=== PATIENT | male | born 1970 | race Caucasian/White ===

== ENCOUNTER → 2018-02-10 13:41 | Outpatient (CLI) | payer OTHER, SELFPAY ==
[2018-02-10 14:17] LABS: Add Manual Diff / Slide Review NO; Basophils Percent Auto 0.5 % (0-2); Hematocrit 48.3 % (41-53); Lymphocytes Percent Auto 20.8 % (25-40); Mean Corpuscular HGB Conc 35.2 % (30-36); Mean Corpuscular Hemoglobin 31.7 PG (26-34); Mean Corpuscular Volume 90.2 fL (80-100); Monocytes Percent Auto 7.9 % (3-14); Neutrophils Absolute Auto 7000 /uL (3000-5900); Neutrophils Percent Auto 69.8 % (50-75); Platelet Count 198 X10^3/uL (150-400); Red Blood Cell Count 5.36 X10^6/uL (4.5-5.9); Red Cell Distribution Width 12.9 % (11.6-14.8)
[2018-02-10 14:41] LABS: Alanine Aminotransferase 79 IU/L (21-72); Albumin 4.7 g/dL (3.5-5.0); Albumin Globulin Ratio 1.9 (1.0-2.8); Alkaline Phosphatase 60 U/L (38-126); Aspartate Aminotransferase 108 IU/L (17-59); Bilirubin Total 2.1 mg/dL (0.2-1.3); Calcium 9.6 mg/dL (8.4-10.2); Estimated Glomerular Filt Rate > 60.0 mL/min (>60); Globulin 2.5 g/dL (1.7-4.1); Glucose 80 mg/dL (70-100); HEMOLYSIS < 15 (0-50); Potassium 4.1 mmol/L (3.4-5.1); Sodium 140 mmol/L (137-145); Total Protein 7.2 g/dL (6.3-8.2)
== END ==
PROVIDERS: PCP Family Medicine; Visit Provider Family Medicine
DX: E34.9 Endocrine disorder, unspecified (principal); I10 Essential (primary) hypertension; Z79.899 Other long term (current) drug therapy
CPT/HCPCS: 36415; 80053; 84403; 85025

== ENCOUNTER → 2018-05-07 12:11 | Outpatient (CLI) | payer OTHER, SELFPAY ==
[2018-05-07 12:56] LABS: Add Manual Diff / Slide Review NO; Basophils Percent Auto 0.7 % (0-2); Hematocrit 44.5 % (41-53); Hemoglobin 15.4 g/dL (13.5-17.5); Mean Corpuscular HGB Conc 34.7 % (30-36); Mean Corpuscular Hemoglobin 31.8 PG (26-34); Mean Corpuscular Volume 91.6 fL (80-100); Monocytes Percent Auto 7.8 % (3-14); Neutrophils Absolute Auto 4300 /uL (3000-5900); Neutrophils Percent Auto 63.5 % (50-75); Platelet Count 176 X10^3/uL (150-400); Red Blood Cell Count 4.86 X10^6/uL (4.5-5.9); White Blood Cell Count 6.7 X10^3/uL (4.5-11.0)
[2018-05-07 13:13] LABS: Alanine Aminotransferase 30 IU/L (21-72); Albumin 4.4 g/dL (3.5-5.0); Albumin Globulin Ratio 1.8 (1.0-2.8); Alkaline Phosphatase 48 U/L (38-126); Aspartate Aminotransferase 29 IU/L (17-59); BUN Creatinine Ratio 22.5 (6-22); Bilirubin Total 1.4 mg/dL (0.2-1.3); Blood Urea Nitrogen 18 mg/dL (9-20); Calcium 9.3 mg/dL (8.4-10.2); Carbon Dioxide 28 mmol/L (22-32); Chloride 100 mmol/L (98-107); Cholesterol 129 mg/dL (140-199); Estimated Glomerular Filt Rate > 60.0 mL/min (>60); Globulin 2.4 g/dL (1.7-4.1); Glucose 83 mg/dL (70-100); HDL Cholesterol 64 mg/dL (40-60); HEMOLYSIS < 15 (0-50); Hemoglobin A1C% w Est Avg Glu 4.9 % (4.0-6.0); LDL Cholesterol Calculated 53 mg/dL (<100); Potassium 3.8 mmol/L (3.4-5.1); Sodium 139 mmol/L (137-145); Total Protein 6.8 g/dL (6.3-8.2); Triglycerides 59 mg/dL (35-150)
[2018-05-07 14:17] LABS: Folate > 20.0 ng/mL (2.76-20.0); Vitamin B12 842 pg/mL (239-931)
[2018-05-07 15:07] LABS: HEMOLYSIS < 15 (0-50); Iron 103 ug/dL (49-181)
[2018-05-07 15:17] LABS: Percent Iron Saturation 36 % (20-50); Total Iron Binding Capacity 283 ug/dL (261-462); Transferrin 228 mg/dL (206-381)
[2018-05-07 15:39] LABS: Thyroid Stimulating Hormone 1.24 uIU/mL (0.47-4.68)
[2018-05-07 16:31] LABS: Vitamin D 25 Hydroxy (D3) 78.6 ng/mL (30.0-100.0)
[2018-05-11 06:26] LABS: Vitamin B1 200 nmol/L (78-185)
== END ==
PROVIDERS: PCP Family Medicine; Visit Provider Registered Nurse Community Health
DX: E46 Unspecified protein-calorie malnutrition (principal); E63.9 Nutritional deficiency, unspecified
CPT/HCPCS: 36415; 80053; 80061; 82306; 82607; 82728; 82746; 83036; 83540; 83550; 84425; 84443; 85025

== ENCOUNTER → 2019-03-11 10:28 | Outpatient (CLI) | payer OTHER, SELFPAY ==
[2019-03-11 11:00] LABS: Hematocrit 42.9 % (41-53); Hemoglobin 14.9 g/dL (13.5-17.5); Mean Corpuscular HGB Conc 34.8 % (30-36); Mean Corpuscular Hemoglobin 31.4 PG (26-34); Mean Corpuscular Volume 90.2 fL (80-100); Platelet Count 185 X10^3/uL (150-400); Red Blood Cell Count 4.75 X10^6/uL (4.5-5.9); Red Cell Distribution Width 13.2 % (11.6-14.8); White Blood Cell Count 6.4 X10^3/uL (4.5-11.0)
[2019-03-14 21:10] LABS: Testosterone Total 467 ng/dL (250-1100)
== END ==
PROVIDERS: PCP Student in an Organized Health Care Education/Training Program; Visit Provider Student in an Organized Health Care Education/Training Program
DX: R79.89 Other specified abnormal findings of blood chemistry (principal); E34.9 Endocrine disorder, unspecified
CPT/HCPCS: 36415; 84402; 84403; 85027

== ENCOUNTER 2019-05-29 20:43 | Emergency (ER) | payer OTHER, SELFPAY ==
[2019-05-29 21:12] VITALS: BP 152/104; PULSE 87; RESP 16; TEMP 36.5; O2SAT 98; BMI 35.2
--- NOTE | 2019-05-29 21:18 | PC.NURSE ---
pt states [place] and had a blister develop on his left big toe. He states this in a normal spot to develop a blister after this type of workout however he states his pain is not proportional to a blister. His left ankle is swollen and it is painful to touch the area. States he karli needs a tetanus and is concerned for infection due to exposure to horse poop in the ponds and puddles of the obsticle course.
[2019-05-29 21:24] VITALS: BP 136/82
--- NOTE | 2019-05-29 23:08 | ED_ITS ---
HPI - Extremity Injury (Lower) General Chief Complaint: Extremity Injury, Lower Stated Complaint: left big toe, thinks infected Time Seen by Provider: 05/29/19 21:47 Source: patient Mode of arrival: ambulatory Limitations: no limitations History of Present Illness HPI Narrative: Patient comes emergency department complaining of left great toe pain after running a [employer] race yesterday. Patient states he developed a blister, and thought he had some pus coming out of it today. He is concerned that he may have developed an infection. He has noticed some mild swelling of his left great toe, as well as some erythema on the medial aspect of the toe, adjacent to the nail. Patient denies any direct injury to the area otherwise. He denies any fevers or chills. He states his whole body aches after doing the raise. No other complaints at this time. Related Data Home Medications Medication Instructions Recorded Confirmed lamotrigine 250 mg tablet,extended 300 mg PO BID #0 tab 02/04/19 03/11/19 release 24 hr lorazepam 2 mg/mL oral concentrate 2 mg PO BEDTIME PRN 02/04/19 03/11/19 quetiapine 25 mg tablet 25 mg PO .prn #0 tab 02/04/19 03/11/19 Previous Rx's Medication Instructions Recorded testosterone cypionate 200 mg IM .see instructions #1 ml 02/16/18 testosterone cypionate 200 mg/mL 200 mg IM Q3W #5 ml 11/04/18 intramuscular oil sulfamethoxazole-trimethoprim 1 tab PO Q12H #14 tab 05/29/19 [Bactrim DS] Allergies Allergy/AdvReac Type Severity Reaction Status Date / Time amoxicillin [AMOXICILLIN] Allergy Mild STOMACH Verified 03/11/19 09:56 PAIN, DIARRHEA Review of Systems Constitutional Constitutional: Denies chills, Denies fatigue, Denies fever(s), Denies frequent falls, Denies lethargy and Denies weakness Eyes Eyes: Denies change in vision, Denies eye discharge, Denies irritation and Denies loss of vision ENT Ears, Nose, Mouth, and Throat: Denies change in voice, Denies dizziness, Denies neck pain, Denies sore throat and Denies throat swelling Cardiovascular Cardiovascular: Denies chest pain, Denies irregular heart rhythm, Denies lightheadedness, Denies palpitations, Denies dyspnea, Denies dyspnea on exertion and Denies orthopnea Respiratory Respiratory: Denies cough, Denies dyspnea, Denies dyspnea on exertion and Denies wheezing Gastrointestinal Gastrointestinal: Denies abdominal pain, Denies change in bowel habits, Denies diarrhea, Denies nausea and Denies vomiting Genitourinary Genitourinary: Denies hematuria, Denies flank pain, Denies urinary incontinence and Denies urinary urgency Musculoskeletal Musculoskeletal: Denies back pain, Denies muscle weakness, Denies neck pain, Denies numbness and Denies tingling Integumentary/Breasts Skin/Breast: Denies pruritus, Denies erythema, Denies rash and Denies wounds Comments: Erythema and pain left great toe Neurologic Neurologic: Denies behavioral changes, Denies confusion, Denies dizziness, Denies frequent falls, Denies loss of vision, Denies numbness, Denies tingling and Denies weakness Psychiatric Psychiatric: Denies anxiety, Denies behavioral changes, Denies confusion, Denies depression, Denies homicidal ideation and Denies suicidal ideation Endocrine Endocrine: Denies fatigue, Denies flushing and Denies palpitations Hematologic/Lymphatic Hematologic/Lymphatic: Denies easy bruising Allergic/Immunologic Allergic/Immunologic: Denies urticaria, Denies throat swelling and Denies wheezing PFSH Medical History Bipolar affective disorder (Chronic 10/16/15) Bipolar disorder (Chronic Unknown) Chronic pain syndrome (Chronic Unknown) Depression (Chronic Unknown) Essential hypertension (Chronic 10/16/15) Hypertension (Chronic Unknown) Kidney stones (Resolved Unknown) Low testosterone (Chronic Unknown) Morbid obesity (Resolved 10/16/15) Pain of right heel (Chronic) Sleep apnea (Chronic Unknown) Testosterone deficiency (Chronic 05/04/15) Surgical History History of lithotripsy S/P bariatric surgery (Chronic) Family History Father Age: 59 Cancer Mother Age: 54 Mental health disorder Social History Smoking Status: Never smoker Family History Father Age: 59 Cancer Mother Age: 54 Mental health disorder Social History Smoking Status: Never smoker Exam Initial Vital Signs Initial Vital Signs: Vital Signs Temperature 97.7 F 05/29/19 21:12 Pulse Rate 87 05/29/19 21:12 Respiratory Rate 16 05/29/19 21:12 Blood Pressure 152/104 H 05/29/19 21:12 Pulse Oximetry 98 05/29/19 21:12 Const General: cooperative and well developed Nutritional Appearance: well nourished Orientation: alert, awake, oriented x3 and not confused [facility] Head: normocephalic and atraumatic Ears: external ears normal Nose: external nose normal and No nasal discharge Face and sinus: face symmetric and No dry mucous membranes Mouth: oral mucosae normal and moist mucous membranes Teeth and gingiva: dentition normal Eyes General: appearance normal, both eyes and all related structures Eyelids: eyelids normal Conjunctivae: conjunctivae normal Sclera: sclerae normal Pupils: PERRL EOM: EOM intact bilaterally Neck Neck: normal visual inspection, trachea midline, No lymphadenopathy, No midline deformity and No JVD Lymphatic: No lymphedema Chest Chest: normal inspection of the chest Resp Effort & Inspection: normal respiratory effort, able to speak in complete sentences, no respiratory distress and no use of accessory muscles Cardio Rate: regular rate Rhythm: regular rhythm Pulses: normal peripheral pulses Back/Spine/Pelvis Back: No CVA tenderness Cervical Spine: cervical ROM normal and No pain with cervical ROM Thoracic/Lumbar Spine: thoracic and lumbar spine normal to inspection Skin Other: Patient has a 1 cm by 1.5 cm bulla on the medial aspect of his left great toe. Mild erythema is noted in a localized fashion surrounding the bowlegged, extending to the edge of the nail and over the tip of the toe. No extension to the base or streaking noted. Minimal edema noted. No purulent exudate expressible. Neuro General: alert, oriented x3, gait normal and no focal motor deficits Speech: speech normal Extrem General: full ROM, no clubbing, cyanosis or edema, no pedal edema and no calf tenderness Psych Appearance: well kempt Mental Status: mental status grossly normal Attitude: cooperative Thought Content: normal and suicidality Judgment: judgment good Course Course Course Narrative: Patient was given a tetanus shot in the emergency department. I discussed with the patient that I do not see clear-cut signs of infection. Patient has a mild increase in erythema on the left great toe compared to the right, but does not appear distinctly cellulitic. I will give him a prescription for antibiotics that he should fill only if the redness and swelling spread down to the base of his toe. Otherwise, he should continue soaks and wear open-toed shoes that do not put pressure on the blistered area. Orders Ordered: Discontinued Medications Tetanus/Diphtheria Toxoids (Td) 0.5 ml IM .ONCE ONE Stop: 05/29/19 23:46 Last Admin: 05/29/19 23:36 Dose: 0.5 ml Documented by: LE Vital Signs Vital signs: Vital Signs - 8 hr 05/29/19 21:12 05/29/19 21:24 Temperature 97.7 F Pulse Rate 87 Respiratory Rate 16 Blood Pressure 152/104 H Blood Pressure [Right Arm] 136/82 Pulse Oximetry 98 MDM - Extremity Injury (Lower) Medical Records Attestation: I reviewed the patient's medical records. Discharge Plan Departure Patient Disposition: Home Clinical Impression: Blister Discharge Date/Time: 05/29/19 23:44 Instructions: DI for Blisters Activity Restrictions/Additional Instructions: Your toe does not appear distinctly infected at this time. Most likely, the mild redness is due to inflammation and will go away on its own. However, if you notice that the redness is spreading down to the base of your toe, you should start the antibiotics. Your prescription has been electronically transmitted to [facility] in [place]. Prescriptions: New sulfamethoxazole-trimethoprim [Bactrim DS] 800-160 mg tablet 1 tab PO Q12H Qty: 14 RF: 0 No Action lorazepam 2 mg/mL concentrate 2 mg PO BEDTIME PRNRF: 0 testosterone cypionate liquid 200 mg IM .see instructions Qty: 1 RF: 5 testosterone cypionate [Depo-Testosterone] 200 mg/mL oil 200 mg IM Q3W Qty: 5 RF: 0 lamotrigine 250 mg tablet extended release 24 hr 300 mg PO BID Qty: 0 RF: 0 quetiapine 25 mg tablet 25 mg PO .prn Qty: 0 RF: 0 Referrals: Jean Santiago MD [Primary Care Provider] -
[2019-05-29] MEDS: TETANUS DIPHTHERIA TOXOIDS 0.5 ML VIAL IM (23:36)
[2019-05-29 23:43] VITALS: BP 135/97; PULSE 64; RESP 14; O2SAT 96
== END 2019-05-29 23:44 | disposition home or self-care (01) ==
PROVIDERS: Emergency Provider Emergency Medicine; PCP Student in an Organized Health Care Education/Training Program
DX: S90.422A Blister (nonthermal), left great toe, initial encounter (principal); Z23 Encounter for immunization
CPT/HCPCS: 90471; 90714; 99282; 99283

== ENCOUNTER → 2019-08-11 10:31 | Outpatient (CLI) | payer OTHER, SELFPAY | PROVIDERS: Family Provider Student in an Organized Health Care Education/Training Program; PCP Student in an Organized Health Care Education/Training Program; Visit Provider Family Medicine | DX: F31.70 Bipolar disorder, currently in remission, most recent episode unspecified (principal); E78.00 Pure hypercholesterolemia, unspecified ==

== ENCOUNTER → 2020-01-18 12:18 | Outpatient (CLI) | payer OTHER, SELFPAY ==
[2020-01-18 12:49] LABS: Add Manual Diff / Slide Review NO; Basophils Absolute Auto 0 /uL (0-100); Basophils Percent Auto 0.4 % (0-2); Eosinophils Absolute Auto 100 /uL (0-450); Eosinophils Percent Auto 1.7 % (2-4); Hematocrit 40.9 % (41-53); Hemoglobin 14.8 g/dL (13.5-17.5); Lymphocytes Absolute Auto 1300 /uL (1100-4500); Lymphocytes Percent Auto 22.2 % (25-40); Mean Corpuscular Hemoglobin 32.6 PG (26-34); Mean Corpuscular Volume 89.8 fL (80-100); Monocytes Absolute Auto 400 /uL (0-900); Monocytes Percent Auto 7.6 % (3-14); Neutrophils Absolute Auto 4000 /uL (1500-7000); Neutrophils Percent Auto 68.1 % (50-75); Platelet Count 196 X10^3/uL (150-400); Red Blood Cell Count 4.56 X10^6/uL (4.5-5.9); Red Cell Distribution Width 12.9 % (11.6-14.8); White Blood Cell Count 5.8 X10^3/uL (4.5-11.0)
[2020-01-18 12:58] LABS: Alanine Aminotransferase 29 IU/L (<50); Albumin 4.7 g/dL (3.5-5.0); Albumin Globulin Ratio 1.6 (1.0-2.8); Alkaline Phosphatase 61 U/L (38-126); Aspartate Aminotransferase 42 IU/L (17-59); BUN Creatinine Ratio 19.1 (6-22); Bilirubin Total 1.4 mg/dL (0.2-1.3); Blood Urea Nitrogen 13 mg/dL (9-20); Calcium 9.6 mg/dL (8.4-10.2); Carbon Dioxide 27 mmol/L (22-32); Chloride 103 mmol/L (98-107); Cholesterol 136 mg/dL (140-199); Estimated Glomerular Filt Rate > 60.0 mL/min (>60); Globulin 2.9 g/dL (1.7-4.1); Glucose 99 mg/dL (70-100); HDL Cholesterol 60 mg/dL (40-60); HEMOLYSIS < 15 (0-50); LDL Cholesterol Calculated 64 mg/dL (<100); Potassium 4.2 mmol/L (3.4-5.1); Sodium 139 mmol/L (137-145); Total Protein 7.6 g/dL (6.3-8.2); Triglycerides 62 mg/dL (35-150)
[2020-01-18 13:18] LABS: Mean Corpuscular HGB Conc 36.2 % (30-36)
[2020-01-18 13:29] LABS: Testosterone 453 ng/dL (132-813)
== END ==
PROVIDERS: Family Provider Student in an Organized Health Care Education/Training Program; PCP Family Medicine; Referring Provider Family Medicine; Visit Provider Family Medicine
DX: E78.00 Pure hypercholesterolemia, unspecified (principal); F31.70 Bipolar disorder, currently in remission, most recent episode unspecified
CPT/HCPCS: 36415; 80053; 80061; 84403; 85025

== ENCOUNTER → 2020-01-31 10:02 | Outpatient (CLI) | payer OTHER, SELFPAY ==
[2020-01-31 13:23] LABS: Lithium 0.6 mmol/L (0.6-1.2)
[2020-01-31 13:56] LABS: Thyroid Stimulating Hormone 0.74 uIU/mL (0.47-4.68)
== END ==
PROVIDERS: Family Provider Student in an Organized Health Care Education/Training Program; PCP Family Medicine; Referring Provider Psychiatry & Neurology Psychiatry; Visit Provider Psychiatry & Neurology Psychiatry
DX: F31.81 Bipolar II disorder (principal)
CPT/HCPCS: 36415; 80178; 84443

== ENCOUNTER → 2020-07-03 12:51 | Outpatient (CLI) | payer OTHER, SELFPAY ==
[2020-07-03 14:59] LABS: BUN Creatinine Ratio 32.8 (6-22); Blood Urea Nitrogen 22 mg/dL (9-20); Calcium 9.3 mg/dL (8.4-10.2); Carbon Dioxide 29 mmol/L (22-32); Chloride 103 mmol/L (98-107); Estimated Glomerular Filt Rate > 60.0 mL/min (>60); Glucose 109 mg/dL (70-100); HEMOLYSIS < 15 (0-50); Potassium 4.1 mmol/L (3.4-5.1); Sodium 139 mmol/L (137-145)
[2020-07-03 15:22] LABS: Lithium 0.6 mmol/L (0.6-1.2)
== END ==
PROVIDERS: Family Provider Student in an Organized Health Care Education/Training Program; PCP Family Medicine; Referring Provider Psychiatry & Neurology Psychiatry; Visit Provider Psychiatry & Neurology Psychiatry
DX: F31.81 Bipolar II disorder (principal)
CPT/HCPCS: 36415; 80048; 80178

== ENCOUNTER → 2020-07-28 15:12 | Outpatient (CLI) | payer OTHER, SELFPAY ==
[2020-07-30 07:56] LABS: COVID19 Sendout Not Detected (Not Detect)
== END ==
PROVIDERS: Family Provider Student in an Organized Health Care Education/Training Program; PCP Family Medicine; Visit Provider Physician Assistant
DX: Z11.59 Encounter for screening for other viral diseases (principal)
CPT/HCPCS: 87635

== ENCOUNTER → 2020-08-31 07:23 | Outpatient (CLI) | payer OTHER, SELFPAY ==
[2020-08-31 08:16] LABS: Add Manual Diff / Slide Review NO; Basophils Absolute Auto 0 /uL (0-100); Basophils Percent Auto 0.2 % (0-2); Eosinophils Absolute Auto 200 /uL (0-450); Eosinophils Percent Auto 1.3 % (2-4); Hematocrit 42.8 % (41-53); Hemoglobin 15.4 g/dL (13.5-17.5); Lymphocytes Absolute Auto 1500 /uL (1100-4500); Lymphocytes Percent Auto 9.3 % (25-40); Mean Corpuscular HGB Conc 36.1 % (30-36); Mean Corpuscular Hemoglobin 31.8 PG (26-34); Mean Corpuscular Volume 88.2 fL (80-100); Monocytes Absolute Auto 900 /uL (0-900); Monocytes Percent Auto 5.3 % (3-14); Neutrophils Absolute Auto 13700 /uL (1500-7000); Neutrophils Percent Auto 83.9 % (50-75); Platelet Count 204 X10^3/uL (150-400); Red Blood Cell Count 4.85 X10^6/uL (4.5-5.9); Red Cell Distribution Width 12.3 % (11.6-14.8); White Blood Cell Count 16.4 X10^3/uL (4.5-11.0)
[2020-08-31 08:19] LABS: Hemoglobin A1C% w Est Avg Glu 4.8 % (4.0-6.0)
[2020-08-31 08:26] LABS: Iron 69 ug/dL (49-181); Lithium 0.6 mmol/L (0.6-1.2)
[2020-08-31 08:28] LABS: Alanine Aminotransferase 24 IU/L (<50); Albumin 4.3 g/dL (3.5-5.0); Albumin Globulin Ratio 1.7 (1.0-2.8); Alkaline Phosphatase 60 U/L (38-126); Aspartate Aminotransferase 33 IU/L (17-59); BUN Creatinine Ratio 25.9 (6-22); Bilirubin Total 1.8 mg/dL (0.2-1.3); Blood Urea Nitrogen 15 mg/dL (9-20); Calcium 9.3 mg/dL (8.4-10.2); Carbon Dioxide 26 mmol/L (22-32); Chloride 104 mmol/L (98-107); Cholesterol 127 mg/dL (140-199); Estimated Glomerular Filt Rate > 60.0 mL/min (>60); Globulin 2.5 g/dL (1.7-4.1); Glucose 102 mg/dL (70-100); HDL Cholesterol 59 mg/dL (40-60); HEMOLYSIS < 15 (0-50); LDL Cholesterol Calculated 58 mg/dL (<100); Potassium 4.1 mmol/L (3.4-5.1); Sodium 137 mmol/L (137-145); Total Protein 6.8 g/dL (6.3-8.2); Triglycerides 51 mg/dL (35-150)
[2020-08-31 08:36] LABS: Total Iron Binding Capacity 317 ug/dL (261-462)
[2020-08-31 08:45] LABS: Vitamin D 25 Hydroxy (D3) 38.9 ng/mL (30.0-100.0)
[2020-08-31 09:02] LABS: Thyroid Stimulating Hormone 1.11 uIU/mL (0.47-4.68)
[2020-08-31 09:04] LABS: Ferritin 231 ng/mL (18-464)
[2020-08-31 09:34] LABS: Folate > 20.0 ng/mL (2.76-20.0); Vitamin B12 543 pg/mL (239-931)
== END ==
PROVIDERS: Family Provider Student in an Organized Health Care Education/Training Program; PCP Family Medicine; Referring Provider Surgery; Visit Provider Surgery
DX: Z51.81 Encounter for therapeutic drug level monitoring (principal); E46 Unspecified protein-calorie malnutrition; K90.9 Intestinal malabsorption, unspecified; Z98.84 Bariatric surgery status
CPT/HCPCS: 36415; 80053; 80061; 80178; 82306; 82607; 82728; 82746; 83036; 83540; 83550; 84425; 84443; 85025

== ENCOUNTER → 2020-09-10 16:13 | Outpatient (CLI) | payer OTHER, SELFPAY ==
[2020-09-10 16:54] LABS: Lithium 0.9 mmol/L (0.6-1.2)
== END ==
PROVIDERS: Family Provider Student in an Organized Health Care Education/Training Program; PCP Family Medicine; Referring Provider Psychiatry & Neurology Psychiatry; Visit Provider Psychiatry & Neurology Psychiatry
DX: F31.81 Bipolar II disorder (principal); Z51.81 Encounter for therapeutic drug level monitoring
CPT/HCPCS: 36415; 80178

== ENCOUNTER → 2021-02-05 12:40 | Outpatient (CLI) | payer OTHER, SELFPAY ==
[2021-02-05 14:51] LABS: Lithium 0.8 mmol/L (0.6-1.2)
[2021-02-05 15:35] LABS: BUN Creatinine Ratio 24.3 (6-22); Blood Urea Nitrogen 17 mg/dL (9-20); Calcium 9.9 mg/dL (8.4-10.2); Carbon Dioxide 27 mmol/L (22-32); Chloride 102 mmol/L (98-107); Estimated Glomerular Filt Rate > 60.0 mL/min (>60); Glucose 90 mg/dL (70-100); HEMOLYSIS < 15 (0-50); Potassium 4.5 mmol/L (3.4-5.1); Sodium 137 mmol/L (137-145)
[2021-02-05 16:10] LABS: Testosterone 230 ng/dL (132-813)
== END ==
PROVIDERS: Family Provider Student in an Organized Health Care Education/Training Program; PCP Family Medicine; Referring Provider Psychiatry & Neurology Psychiatry; Visit Provider Psychiatry & Neurology Psychiatry
DX: F31.9 Bipolar disorder, unspecified (principal); E29.1 Testicular hypofunction
CPT/HCPCS: 36415; 80048; 80178; 84403

== ENCOUNTER 2021-07-11 09:36 | Emergency (ER) | payer OTHER, SELFPAY ==
[2021-07-11 09:52] VITALS: BP 131/77; PULSE 73; RESP 18; TEMP 36.6; O2SAT 98; BMI 44.4
[2021-07-11 10:10] LABS: Add Manual Diff / Slide Review NO; Basophils Absolute Auto 0 /uL (0-100); Basophils Percent Auto 0.5 % (0-2); Eosinophils Absolute Auto 200 /uL (0-450); Eosinophils Percent Auto 2.2 % (2-4); Hematocrit 45.6 % (41-53); Hemoglobin 15.9 g/dL (13.5-17.5); Lymphocytes Absolute Auto 2000 /uL (1100-4500); Lymphocytes Percent Auto 22.7 % (25-40); Mean Corpuscular HGB Conc 34.9 % (30-36); Mean Corpuscular Hemoglobin 30.8 PG (26-34); Mean Corpuscular Volume 88.2 fL (80-100); Monocytes Absolute Auto 800 /uL (0-900); Neutrophils Absolute Auto 5900 /uL (1500-7000); Neutrophils Percent Auto 65.6 % (50-75); Platelet Count 189 X10^3/uL (150-400); Red Blood Cell Count 5.17 X10^6/uL (4.5-5.9); White Blood Cell Count 8.9 X10^3/uL (4.5-11.0)
[2021-07-11 10:14] LABS: Alanine Aminotransferase 29 IU/L (<50); Albumin 4.8 g/dL (3.5-5.0); Albumin Globulin Ratio 1.8 (1.0-2.8); Alkaline Phosphatase 60 U/L (38-126); Aspartate Aminotransferase 31 IU/L (17-59); BUN Creatinine Ratio 24.6 (6-22); Bilirubin Total 1.3 mg/dL (0.2-1.3); Blood Urea Nitrogen 17 mg/dL (9-20); Calcium 9.8 mg/dL (8.4-10.2); Carbon Dioxide 26 mmol/L (22-32); Chloride 103 mmol/L (98-107); Estimated Glomerular Filt Rate > 60.0 mL/min (>60); Globulin 2.7 g/dL (1.7-4.1); Glucose 99 mg/dL (70-100); HEMOLYSIS 17 (0-50); Lipase 80 U/L (23-300); Potassium 4.4 mmol/L (3.4-5.1); Sodium 137 mmol/L (137-145); Total Protein 7.5 g/dL (6.3-8.2)
--- NOTE | 2021-07-11 11:08 | ED.ABDPAIN ---
HPI - Abdominal Pain General Chief Complaint: Abdominal Pain Stated Complaint: ABDOMINAL PAIN Time Seen by Provider: 07/11/21 11:03 Source: patient Mode of arrival: Ambulatory Limitations: no limitations History of Present Illness HPI narrative: Patient here for right lower quadrant pain. Here with . Sent here from urgent care. Had sudden onset this morning with crampy pain. Improved. Does radiate to the back. No chest pain. No fever chills. No groin pain. No urinary complaints. No vomiting. No fever chills. Patient has history kidney stones but states does not feel like a kidney stone. Still has his appendix. History of gastric sleeve surgery years ago. Pain is improved. Not toxic. Laboratory studies so far reassuring. Pain is controlled Related Data Home Medications Medication Instructions Recorded Confirmed lamotrigine 250 mg tablet,extended 300 mg PO BID #0 tab 02/04/19 07/11/21 release 24 hr lorazepam 2 mg/mL oral concentrate 2 mg PO BEDTIME PRN 02/04/19 07/11/21 lithium carbonate 600 mg capsule 600 mg PO BID 07/11/21 07/11/21 Previous Rx's Medication Instructions Recorded testosterone cypionate 200 mg IM .see instructions #1 ml 02/16/18 Allergies Allergy/AdvReac Type Severity Reaction Status Date / Time amoxicillin [AMOXICILLIN] Allergy Mild STOMACH Verified 07/11/21 09:01 PAIN, DIARRHEA Review of Systems Review of Systems Narrative: GENERAL: Denies chills, fatigue, malaise, fever, sweats. HEENT: Denies sinus pain, ear pain, sore throat RESPIRATORY: Denies dyspnea, cough CARDIOVASCULAR: Denies chest pain, palpitations GASTROINTESTINAL: Denies nausea, vomiting, positive for abdominal pain : Denies dysuria, frequency, hematuria MUSCULOSKELETAL: denies muscle or bony pain SKIN: Denies rash, skin lesions NEUROLOGIC: Denies weakness, numbness ROS Unobtainable: All systems reviewed & are unremarkable except as noted in HPI and below Patient History Medical History (Updated 07/11/21 @ 12:38 by Jaquan Gil MD) Bipolar affective disorder (10/16/15) Bipolar disorder (Unknown) Chronic pain syndrome (Unknown) Depression (Unknown) Essential hypertension (10/16/15) Hypertension (Unknown) Kidney stones (Unknown) Low testosterone (Unknown) Morbid obesity (10/16/15) Pain of right heel Sleep apnea (Unknown) Testosterone deficiency (05/04/15) Surgical History History of lithotripsy S/P bariatric surgery Family History Father Age: 61 Cancer Mother Age: 56 Mental health disorder Social History Smoking Status: Never smoker Smoking Status: Never smoker alcohol intake frequency: holidays/special occasions only Substance Use Type: does not use Exam Narrative Exam Narrative: GENERAL: in no distress, not toxic not dyspneic HEAD: Normocephalic. EYES: Pupils equal round No scleral icterus. ENT: Mucous membranes moist. NECK: Trachea midline. CARDIOVASCULAR: Regular rate and rhythm without murmurs RESPIRATORY: Clear to auscultation. Breath sounds equal bilaterally. No wheezes, rales, or rhonchi. GASTROINTESTINAL: Abdomen soft, reproducible right lower quadrant tenderness, no peritoneal signs, bowel sounds present EXTREMITIES: No gross deformities. NEURO: AOx4. SKIN: Warm and dry PSYCH: Not anxious, is cooperative Initial Vital Signs Initial Vital Signs: Vital Signs Temperature 98 F 07/11/21 09:52 Pulse Rate 73 07/11/21 09:52 Respiratory Rate 18 07/11/21 09:52 Blood Pressure 131/77 07/11/21 09:52 Pulse Oximetry 98 07/11/21 09:52 Course Course Course Narrative: No new issues during course of stay. Orders Ordered: ED Orders 07/11/21 09:50 Complete Blood Count AUTO DIFF Stat Comprehensive Metabolic Panel Stat Lipase Stat 07/11/21 09:55 EKG-12 Lead Stat 07/11/21 11:13 CT abdomen pelvis wo con Stat Reevaluation(s) Reevaluation #1: Spoke with patient and results. At this time exam and laboratory studies and imaging reassuring. However could be early appendicitis, they are comfortable home observation for any changes and return immediately if any questions concerns or worsening. Time: 12:37 Vital Signs Vital signs: Vital Signs - 8 hr 07/11/21 09:52 07/11/21 11:41 Temperature 98 F Pulse Rate 73 60 Respiratory Rate 18 18 Blood Pressure 131/77 125/77 Pulse Oximetry 98 95 MDM - Abdominal Pain Differential Diagnosis Differential diagnosis: Likely abdominal pain, acute appendicitis, calculus of kidney, constipation, diverticulitis and small bowel obstruction Lab Data Result diagrams: 07/11/21 09:50 07/11/21 09:50 Labs: Lab Results 07/11/21 07/11/21 Range/Units 09:50 09:50 WBC 8.9 (4.5-11.0) X10^3/uL RBC 5.17 (4.5-5.9) X10^6/uL Hgb 15.9 (13.5-17.5) g/dL Hct 45.6 (41-53) % MCV 88.2 (80-100) fL MCH 30.8 (26-34) PG MCHC 34.9 (30-36) % RDW 13.0 (11.6-14.8) % Plt Count 189 (150-400) X10^3/uL Neut % (Auto) 65.6 (50-75) % Lymph % (Auto) 22.7 L (25-40) % Gillespie % (Auto) 9.0 (3-14) % Eos % (Auto) 2.2 (2-4) % Baso % (Auto) 0.5 (0-2) % Neut # (Auto) 5900 (0070-3797) /uL Lymph # (Auto) 2000 (4567-0287) /uL Gillespie # (Auto) 800 (0-900) /uL Eos # (Auto) 200 (0-450) /uL Baso # (Auto) 0 (0-100) /uL Sodium 137 (137-145) mmol/L Potassium 4.4 (3.4-5.1) mmol/L Chloride 103 (98-107) mmol/L Carbon Dioxide 26 (22-32) mmol/L BUN 17 (9-20) mg/dL Creatinine 0.69 (0.66-1.25) mg/dL Estimated GFR > 60.0 (>60) mL/min BUN/Creatinine Ratio 24.6 H (6-22) Glucose 99 (70-100) mg/dL Calcium 9.8 (8.4-10.2) mg/dL Total Bilirubin 1.3 (0.2-1.3) mg/dL AST 31 (17-59) IU/L ALT 29 (<50) IU/L Alkaline Phosphatase 60 (38-126) U/L Total Protein 7.5 (6.3-8.2) g/dL Albumin 4.8 (3.5-5.0) g/dL Globulin 2.7 (1.7-4.1) g/dL Albumin/Globulin Ratio 1.8 (1.0-2.8) Lipase 80 (23-300) U/L Point of care testing: Urine Dip Bedside Urine Glucose Negative Bedside Urine Bilirubin - Negative Bedside Urine Ketone - Negative Urine Specific [place] 1.015 Bedside Urine Occult Blood - Negative Bedside Urine pH 6.0 Bedside Urine Protein - Negative Bedside Urine Urobilinogen - Negative Bedside Urine Nitrite - Negative Bedside Urine Leukocytes - Negative Esterase Imaging Data CT scan - abdomen/pelvis: Radiologist's Impression: [address] [address] [address] Scan Report Signed Patient: Santos Todd MR#: [id number] : 1970 Acct:[id number] Age/Sex: 50 / M Date of Service: 07/11/21 Loc: ED Accession Number: [id number] ?? Procedure: CT abdomen pelvis wo con Ordering Provider: Jaquan Gil MD PROCEDURE:? CT ABDOMEN PELVIS WO CON ? INDICATIONS:? Right lower quadrant pain ? TECHNIQUE:? Noncontrast 5 mm thick sections acquired from the diaphragms to the symphysis.? 5 mm coronal and sagittal reformats were then performed.? For radiation dose reduction, the following was used:? automated exposure control, adjustment of mA and/or kV according to patient size.? ? COMPARISON:? [facility], CT, KIDNEY/ URETER/BLADDER, 09/27/2008, 3:30. ? FINDINGS:? Image quality:? Excellent.? ? ABDOMEN:? Lung bases:? Lung bases are clear.? Heart size is normal.? ? Solid organs:? There is a cyst within the anterior left hepatic lobe.? A small low-density focus is also demonstrated in the left hepatic lobe measuring up to 0.8 cm which is too small to characterize but likely represents a cyst.? Gallbladder appears within normal limits without calcified gallstones.? Pancreas is normal in contours without peripancreatic fat stranding or fluid collections.? Spleen is enlarged, measuring up to 17.1 cm. No adrenal nodules.? Kidneys demonstrate no hydronephrosis.? There is mild nonspecific perinephric stranding redemonstrated bilaterally. ? Peritoneum and bowel:? Postsurgical changes are demonstrated along the stomach.? Small bowel loops demonstrate normal wall thickness and caliber.? No pericecal inflammatory changes to suggest appendicitis.? There is colonic diverticulosis without acute diverticulitis.? There is slightly eccentric wall thickening in the rectum.? No free fluid or air.? ? Nodes and vessels:? No retroperitoneal or mesenteric adenopathy by size criteria.? Aorta and inferior vena cava are normal in caliber.? ? Miscellaneous:? No ventral hernias.? ? ? PELVIS:? Genitourinary:? Bladder wall thickness is normal.? ? Miscellaneous:? No inguinal hernias or adenopathy.? ? Bones:? No suspicious bony lesions.? No vertebral body compression fractures.? ? IMPRESSION:? ? 1. No pericecal inflammatory changes to suggest appendicitis. ? 2. Colonic diverticulosis without acute diverticulitis. ? 3. No evidence of bowel obstruction. ? 4. Mild asymmetric bowel wall thickening in the rectum.? The findings are incompletely evaluated on the current study in the absence of intravenous contrast.? Recommend correlation clinically and colonoscopy if indicated. ? ? Dictated by: Maxim Harris M.D. on 07/11/2021 at 11:48 ? ? Approved by: Maxim Harris M.D. on 07/11/2021 at 11:54 ? ECG Data Interpretation: Normal sinus rhythm no ST elevation or depression. Rate 64. MDM Narrative Medical decision making narrative: Appropriate for discharge home. Laboratory studies and imaging reassuring. No contrast study indicated this time. Reviewed with patient and results. Return precautions reviewed with him. They understand could be early appendicitis. He does need referral for colonoscopy. He states he will see his family doctor at [facility] for referral. Not toxic at discharge. Discharge Plan Departure Patient Disposition: Home Clinical Impression: Abdominal pain Qualifiers: Abdominal location: right lower quadrant Qualified Code(s): R10.31 - Right lower quadrant pain Instructions: DI for Appendicitis -- Adult, DI for Abdominal Pain-Adult Activity Restrictions/Additional Instructions: Return if worse if any questions or concerns. See family doctor for referral for colonoscopy for findings on CT scan from today. Call today to make appointment. No driving operating machinery today. Return if worse or if any questions or concerns Prescriptions: No Action lorazepam 2 mg/mL concentrate 2 mg PO BEDTIME PRNRF: 0 lithium carbonate 600 mg capsule 600 mg PO BID RF: 0 testosterone cypionate liquid 200 mg IM .see instructions Qty: 1 RF: 5 lamotrigine 250 mg tablet extended release 24 hr 300 mg PO BID Qty: 0 RF: 0 Referrals: Raphael Edwards MD [Primary Care Provider] -
--- NOTE | 2021-07-11 11:13 | DI.CT.S_ITS ---
PROCEDURE: CT ABDOMEN PELVIS WO CON INDICATIONS: Right lower quadrant pain TECHNIQUE: Noncontrast 5 mm thick sections acquired from the diaphragms to the symphysis. 5 mm coronal and sagittal reformats were then performed. For radiation dose reduction, the following was used: automated exposure control, adjustment of mA and/or kV according to patient size. COMPARISON: Located [facility], CT, KIDNEY/ URETER/BLADDER, 09/27/2008, 3:30. FINDINGS: Image quality: Excellent. ABDOMEN: Lung bases: Lung bases are clear. Heart size is normal. Solid organs: There is a cyst within the anterior left hepatic lobe. A small low-density focus is also demonstrated in the left hepatic lobe measuring up to 0.8 cm which is too small to characterize but likely represents a cyst. Gallbladder appears within normal limits without calcified gallstones. Pancreas is normal in contours without peripancreatic fat stranding or fluid collections. Spleen is enlarged, measuring up to 17.1 cm. No adrenal nodules. Kidneys demonstrate no hydronephrosis. There is mild nonspecific perinephric stranding redemonstrated bilaterally. Peritoneum and bowel: Postsurgical changes are demonstrated along the stomach. Small bowel loops demonstrate normal wall thickness and caliber. No pericecal inflammatory changes to suggest appendicitis. There is colonic diverticulosis without acute diverticulitis. There is slightly eccentric wall thickening in the rectum. No free fluid or air. Nodes and vessels: No retroperitoneal or mesenteric adenopathy by size criteria. Aorta and inferior vena cava are normal in caliber. Miscellaneous: No ventral hernias. PELVIS: Genitourinary: Bladder wall thickness is normal. Miscellaneous: No inguinal hernias or adenopathy. Bones: No suspicious bony lesions. No vertebral body compression fractures. IMPRESSION: 1. No pericecal inflammatory changes to suggest appendicitis. 2. Colonic diverticulosis without acute diverticulitis. 3. No evidence of bowel obstruction. 4. Mild asymmetric bowel wall thickening in the rectum. The findings are incompletely evaluated on the current study in the absence of intravenous contrast. Recommend correlation clinically and colonoscopy if indicated. Dictated by: Maxim Harris M.D. on 07/11/2021 at 11:48 Approved by: Maxim Harris M.D. on 07/11/2021 at 11:54
[2021-07-11 11:41] VITALS: BP 125/77; PULSE 60; RESP 18; O2SAT 95
[2021-07-11 12:41] VITALS: BP 131/71; PULSE 63; RESP 20; O2SAT 98
== END 2021-07-11 12:48 | disposition home or self-care (01) ==
PROVIDERS: Emergency Provider Emergency Medicine; Family Provider Student in an Organized Health Care Education/Training Program; PCP Family Medicine
DX: R10.31 Right lower quadrant pain (principal); I10 Essential (primary) hypertension
CPT/HCPCS: 36415; 74176; 80053; 81003; 83690; 85025; 93005; 93010; 99284

== ENCOUNTER → 2021-11-12 13:25 | Outpatient (CLI) | payer OTHER, SELFPAY ==
[2021-11-12 14:12] LABS: Hemoglobin A1C% w Est Avg Glu 4.8 % (4.0-6.0)
[2021-11-12 14:15] LABS: HEMOLYSIS < 15 (0-50); Iron 94 ug/dL (49-181); Lithium 0.8 mmol/L (0.6-1.2)
[2021-11-12 14:16] LABS: Cholesterol 142 mg/dL (140-199); HDL Cholesterol 60 mg/dL (40-60); LDL Cholesterol Calculated 63 mg/dL (<100); Triglycerides 93 mg/dL (35-150)
[2021-11-12 14:26] LABS: Percent Iron Saturation 28 % (20-50); Total Iron Binding Capacity 332 ug/dL (261-462); Transferrin 257 mg/dL (206-381)
[2021-11-12 14:48] LABS: Thyroid Stimulating Hormone 1.28 uIU/mL (0.47-4.68)
[2021-11-12 14:51] LABS: Vitamin D 25 Hydroxy (D3) 30.1 ng/mL (30.0-100.0)
[2021-11-12 15:06] LABS: Vitamin B12 460 pg/mL (239-931)
[2021-11-16 20:09] LABS: Vitamin B1 178.5 nmol/L (66.5-200.0)
== END ==
PROVIDERS: Family Provider Student in an Organized Health Care Education/Training Program; PCP Family Medicine; Referring Provider Surgery; Visit Provider Surgery
DX: F31.9 Bipolar disorder, unspecified (principal); E55.9 Vitamin D deficiency, unspecified; K90.9 Intestinal malabsorption, unspecified; Z98.84 Bariatric surgery status
CPT/HCPCS: 36415; 80061; 80178; 82306; 82607; 83036; 83540; 83550; 84425; 84443

== ENCOUNTER → 2022-03-26 09:18 | Outpatient (CLI) | payer OTHER, SELFPAY ==
[2022-03-26 10:25] LABS: Lithium 1.2 mmol/L (0.6-1.2)
[2022-03-30 10:35] LABS: Percent Free Testosterone 2.25 % (1.50-4.20); Testosterone Free 7.98 ng/dL (5.00-21.00); Testosterone Total 354.5 ng/dL (264.0-916.0)
== END ==
PROVIDERS: Family Provider Student in an Organized Health Care Education/Training Program; PCP Family Medicine; Referring Provider Psychiatry & Neurology Psychiatry; Visit Provider Psychiatry & Neurology Psychiatry
DX: F31.9 Bipolar disorder, unspecified (principal); E29.1 Testicular hypofunction
CPT/HCPCS: 36415; 80178; 84402; 84403

== ENCOUNTER 2022-05-19 11:39 | Emergency (ER) | payer OTHER, SELFPAY ==
[2022-05-19 11:45] VITALS: PULSE 80; RESP 21; O2SAT 98
[2022-05-19 11:46] VITALS: BP 186/107; PULSE 78; RESP 18; TEMP 37.2; O2SAT 97; BMI 47.8
--- NOTE | 2022-05-19 11:51 | DI.RAD.S_ITS ---
PROCEDURE: XR CHEST 1V INDICATIONS: chest pain TECHNIQUE: One view of the chest was acquired. COMPARISON: CT, CT ABDOMEN PELVIS WO CON, 07/11/2021, 11:15. [facility], , CHEST 1 VIEW, 01/16/2014, 16:46. [facility], , CHEST 1 VIEW, 02/09/2008, 13:54. FINDINGS: Surgical changes and devices: Clips in the left abdomen. Lungs and pleura: Lungs are clear. No pleural effusions or pneumothorax. Mediastinum: Mediastinal contours appear normal. Heart size is normal. Bones and chest wall: No suspicious bony lesions. Overlying soft tissues appear unremarkable. IMPRESSION: No acute cardiopulmonary abnormality identified. Dictated by: Barak Orozco M.D. on 05/19/2022 at 12:19 Approved by: Barak rOozco M.D. on 05/19/2022 at 12:21
[2022-05-19 12:00] VITALS: PULSE 74; RESP 22; O2SAT 97
[2022-05-19 12:09] LABS: Add Manual Diff / Slide Review NO; Basophils Absolute Auto 0 /uL (0-100); Basophils Percent Auto 0.4 % (0-2); Eosinophils Absolute Auto 300 /uL (0-450); Eosinophils Percent Auto 3.2 % (2-4); Hematocrit 38.4 % (41-53); Hemoglobin 13.7 g/dL (13.5-17.5); Lymphocytes Absolute Auto 1800 /uL (1100-4500); Lymphocytes Percent Auto 21.7 % (25-40); Mean Corpuscular HGB Conc 35.8 % (30-36); Mean Corpuscular Volume 89.6 fL (80-100); Monocytes Absolute Auto 900 /uL (0-900); Monocytes Percent Auto 10.9 % (3-14); Neutrophils Absolute Auto 5300 /uL (1500-7000); Neutrophils Percent Auto 63.8 % (50-75); Platelet Count 204 X10^3/uL (150-400); Red Blood Cell Count 4.29 X10^6/uL (4.5-5.9); White Blood Cell Count 8.3 X10^3/uL (4.5-11.0)
--- NOTE | 2022-05-19 12:18 | ED.CHESTPAIN ---
HPI - Chest Pain <Carol Laird WOOD ROOM SUPERVISOR - Last Filed: 05/19/22 15:44> General Chief Complaint: Chest Pain Stated Complaint: Swelling in legs/ chest pain Time Seen by Provider: 05/19/22 12:04 Source: patient Mode of arrival: Ambulatory Limitations: no limitations History of Present Illness HPI narrative: This is a 51-year-old male with history of morbid obesity at 435 lb, history of bariatric surgery and gain of 150 lb over the last 2 years, bipolar affective disorder, edema of his lower extremities when he was much heavier and now has had increasing swelling in his lower extremities over the last 10 days. He reports it is worse when he is ambulatory. He denies history of diabetes, went to the walk-in clinic this morning for evaluation and was sent to the emergency department for treatment and care. Patient denies any acute onset of chest pain, shortness of breath, chest pain with radiation, shortness of breath with exertion or other. His primary care provider is Dr. Raphael coulter now out of [facility]. Has a follow-up appointment scheduled on 05/26/2022. Patient denies any weakness, lightheadedness, recent illness. He states that when his legs are dependent the swelling is worse. He states he used to take a diuretic but has not recently and does not remember which one. On chart review it appears that patient is to take hydrochlorothiazide 25 mg p.o. daily. Patient does not have any history of renal disease, his creatinine baseline on review is 0.7. Patient is hypertensive today but states that at home his blood pressures have been 140s systolic over 80s to 90s. He does not take any antihypertensives, states that he takes his lithium as prescribed, he is also on lamotrigine and Ativan as needed for sleep. He denies any open wounds, denies any increase in urination or recent fever. Denies any shortness of breath or cough. Related Data Home Medications Medication Instructions Recorded Confirmed lamotrigine 250 mg tablet,extended 300 mg PO BID #0 tabs 02/04/19 05/19/22 release 24 hr lorazepam 2 mg/mL oral concentrate 2 mg PO BEDTIME PRN 02/04/19 05/19/22 lithium carbonate 600 mg capsule 600 mg PO BID 07/11/21 05/19/22 Previous Rx's Medication Instructions Recorded hydrochlorothiazide 25 mg tablet 25 mg PO DAILY 05/19/22 hypertension/swelling #30 tabs Allergies Allergy/AdvReac Type Severity Reaction Status Date / Time amoxicillin [AMOXICILLIN] Allergy Mild STOMACH Verified 05/19/22 11:50 PAIN, DIARRHEA Review of Systems <SANTIAGO Aguirre - Last Filed: 05/19/22 15:44> Review of Systems Narrative: Review of systems is negative for acute abnormalities unless otherwise noted in HPI Patient History <SANTIAGO Aguirre - Last Filed: 05/19/22 15:44> Medical History (Updated 05/19/22 @ 13:03 by SANTIAGO Aguirre) Bipolar affective disorder (10/16/15) Bipolar disorder (Unknown) Chronic pain syndrome (Unknown) Depression (Unknown) Essential hypertension (10/16/15) Hypertension (Unknown) Kidney stones (Unknown) Low testosterone (Unknown) Morbid obesity (10/16/15) Pain of right heel Sleep apnea (Unknown) Testosterone deficiency (05/04/15) Surgical History History of lithotripsy S/P bariatric surgery Family History Father Age: 62 Cancer Mother Age: 57 Mental health disorder Social History Smoking Status: Current some day smoker Smoking Status: Current some day smoker tobacco type: cigars alcohol intake frequency: a few times a week Substance Use Type: marijuana Exam <SANTIAGO Aguirre - Last Filed: 05/19/22 15:44> Narrative Exam Narrative: Reviewed vitals signs and nursing notes. General: cooperative, comfortable, in no acute distress, well groomed, obese, resting without dyspnea or tachypnea HEENT: symmetrical facial expressions, moist mucous membranes, EOMI Cardiovascular: regular rate and rhythm, bilateral lower extremity peripheral edema 2 to 3+, warm extremities, S1-S2 without murmur, no carotid bruits, DP and PT pulses are palpable, brisk cap refill, no discoloration or pallor, no erythema, hypertensive Respiratory: normal effort, able to speak in complete sentences, without wheezing, stridor, or abnormal breath sounds. No retractions or tachypnea. GI: abdomen soft, nontender to palpation, nondistended, without masses, rebound tenderness or exquisite tenderness with exam. MSK: moves all extremities, neurovascularly intact, no weakness, normal tone Skin: brisk capillary refill, without pallor or erythema Neuro: normal speech and cognition, A&O x3, ambulatory, clear speech Psych: mental status is grossly normal, congruent mood, normal affect, pleasant and cooperative Initial Vital Signs Initial Vital Signs: Vital Signs Pulse Rate 80 05/19/22 11:45 Respiratory Rate 21 05/19/22 11:45 Pulse Oximetry 98 05/19/22 11:45 <Jose Vasquez MD - Last Filed: 05/26/22 07:35> Initial Vital Signs Initial Vital Signs: Vital Signs Pulse Rate 80 05/19/22 11:45 Respiratory Rate 21 05/19/22 11:45 Pulse Oximetry 98 05/19/22 11:45 Scores <SANTIAGO Aguirre - Last Filed: 05/19/22 15:44> HEART Score Heart Score history: Slightly Suspicious Heart Score EKG: Normal Heart Score Age: 45-64 years old Heart Score risk factors: No known risk factors Heart Score troponin: < or = to normal limit Heart Score Total: 1 <Jose Vasquez MD - Last Filed: 05/26/22 07:35> HEART Score Heart Score Total: 1 Course <SANTIAGO Aguirre - Last Filed: 05/19/22 15:44> Orders Ordered: ED Orders 05/19/22 11:51 XR chest 1V Stat Complete Blood Count AUTO DIFF Stat Comprehensive Metabolic Panel Stat Lipase Stat Magnesium Stat Troponin & CK Cardiac Panel Stat EKG-12 Lead Stat 05/19/22 12:00 D Dimer Stat Accord Stat 05/19/22 12:31 COVID19 -Nasal RAPID/Pre-Proc Stat Vital Signs Vital signs: Vital Signs - 8 hr 05/19/22 11:46 05/19/22 11:45 05/19/22 12:00 Temperature 99 F Pulse Rate 78 80 74 Respiratory Rate 18 21 22 Blood Pressure 186/107 H Pulse Oximetry 97 98 97 Oxygen Delivery Method Room Air 05/19/22 12:30 05/19/22 12:31 05/19/22 12:31 Temperature Pulse Rate 69 68 Respiratory Rate 26 H Blood Pressure 152/94 H Pulse Oximetry 97 98 Oxygen Delivery Method Room Air 05/19/22 13:00 05/19/22 13:00 Temperature Pulse Rate 70 Respiratory Rate 22 Blood Pressure 155/89 H Pulse Oximetry 98 Oxygen Delivery Method Room Air <Jose Vasquez MD - Last Filed: 05/26/22 07:35> Orders Ordered: ED Orders 05/19/22 11:51 XR chest 1V Stat Complete Blood Count AUTO DIFF Stat Comprehensive Metabolic Panel Stat Lipase Stat Magnesium Stat Troponin & CK Cardiac Panel Stat EKG-12 Lead Stat 05/19/22 12:00 D Dimer Stat Accord Stat 05/19/22 12:31 COVID19 -Nasal RAPID/Pre-Proc Stat Vital Signs Vital signs: Vital Signs - 8 hr 05/19/22 11:46 05/19/22 11:45 05/19/22 12:00 Temperature 99 F Pulse Rate 78 80 74 Respiratory Rate 18 21 22 Blood Pressure 186/107 H Pulse Oximetry 97 98 97 Oxygen Delivery Method Room Air 05/19/22 12:30 05/19/22 12:31 05/19/22 12:31 Temperature Pulse Rate 69 68 Respiratory Rate 26 H Blood Pressure 152/94 H Pulse Oximetry 97 98 Oxygen Delivery Method Room Air 05/19/22 13:00 05/19/22 13:00 Temperature Pulse Rate 70 Respiratory Rate 22 Blood Pressure 155/89 H Pulse Oximetry 98 Oxygen Delivery Method Room Air MDM - Chest Pain <SANTIAGO Aguirre - Last Filed: 05/19/22 15:44> Lab Data Result diagrams: 05/19/22 11:51 05/19/22 11:51 Labs: Lab Results 05/19/22 05/19/22 05/19/22 Range/Units 11:51 11:51 12:00 WBC 8.3 (4.5-11.0) X10^3/uL RBC 4.29 L (4.5-5.9) X10^6/uL Hgb 13.7 (13.5-17.5) g/dL Hct 38.4 L (41-53) % MCV 89.6 (80-100) fL MCH 32.0 (26-34) PG MCHC 35.8 (30-36) % RDW 13.0 (11.6-14.8) % Plt Count 204 (150-400) X10^3/uL Neut % (Auto) 63.8 (50-75) % Lymph % (Auto) 21.7 L (25-40) % [place] % (Auto) 10.9 (3-14) % Eos % (Auto) 3.2 (2-4) % Baso % (Auto) 0.4 (0-2) % Neut # (Auto) 5300 (2647-2728) /uL Lymph # (Auto) 1800 (1737-5412) /uL [place] # (Auto) 900 (0-900) /uL Eos # (Auto) 300 (0-450) /uL Baso # (Auto) 0 (0-100) /uL D-Dimer (<500) ng/ml Sodium 136 L (137-145) mmol/L Potassium 3.8 (3.4-5.1) mmol/L Chloride 105 (98-107) mmol/L Carbon Dioxide 26 (22-32) mmol/L BUN 18 (9-20) mg/dL Creatinine 0.78 (0.66-1.25) mg/dL Estimated GFR > 60 (>60) mL/min BUN/Creatinine Ratio 23.1 H (6-22) Glucose 96 (70-100) mg/dL Calcium 9.1 (8.4-10.2) mg/dL Magnesium 1.9 (1.6-2.3) mg/dL Total Bilirubin 1.3 (0.2-1.3) mg/dL AST 36 (17-59) IU/L ALT 31 (<50) IU/L Alkaline Phosphatase 65 (38-126) U/L Total Creatine Kinase 265 H (55-170) U/L CK-MB (CK-2) 2.83 H (<2.37) ng/mL CK-MB (CK-2) Rel Index 1.1 L (1.5-5.0) % Troponin I 0.029 (0.01-0.034) ng/mL Total Protein 7.0 (6.3-8.2) g/dL Albumin 4.2 (3.5-5.0) g/dL Globulin 2.8 (1.7-4.1) g/dL Albumin/Globulin Ratio 1.5 (1.0-2.8) Lipase 88 (23-300) U/L Accord 1.2 (0.6-1.2) mmol/L SARS-CoV-2 (PCR) (Negative) 05/19/22 05/19/22 Range/Units 12:00 12:31 WBC (4.5-11.0) X10^3/uL RBC (4.5-5.9) X10^6/uL Hgb (13.5-17.5) g/dL Hct (41-53) % MCV (80-100) fL MCH (26-34) PG MCHC (30-36) % RDW (11.6-14.8) % Plt Count (150-400) X10^3/uL Neut % (Auto) (50-75) % Lymph % (Auto) (25-40) % [place] % (Auto) (3-14) % Eos % (Auto) (2-4) % Baso % (Auto) (0-2) % Neut # (Auto) (1898-8322) /uL Lymph # (Auto) (6701-3123) /uL [place] # (Auto) (0-900) /uL Eos # (Auto) (0-450) /uL Baso # (Auto) (0-100) /uL D-Dimer 223 (<500) ng/ml Sodium (137-145) mmol/L Potassium (3.4-5.1) mmol/L Chloride (98-107) mmol/L Carbon Dioxide (22-32) mmol/L BUN (9-20) mg/dL Creatinine (0.66-1.25) mg/dL Estimated GFR (>60) mL/min BUN/Creatinine Ratio (6-22) Glucose (70-100) mg/dL Calcium (8.4-10.2) mg/dL Magnesium (1.6-2.3) mg/dL Total Bilirubin (0.2-1.3) mg/dL AST (17-59) IU/L ALT (<50) IU/L Alkaline Phosphatase (38-126) U/L Total Creatine Kinase (55-170) U/L CK-MB (CK-2) (<2.37) ng/mL CK-MB (CK-2) Rel Index (1.5-5.0) % Troponin I (0.01-0.034) ng/mL Total Protein (6.3-8.2) g/dL Albumin (3.5-5.0) g/dL Globulin (1.7-4.1) g/dL Albumin/Globulin Ratio (1.0-2.8) Lipase (23-300) U/L Accord (0.6-1.2) mmol/L SARS-CoV-2 (PCR) Negative (Negative) Imaging Data Chest x-ray: Radiologist's Impression: PROCEDURE:? XR CHEST 1V ? INDICATIONS:? chest pain ? TECHNIQUE:? One view of the chest was acquired.? ? COMPARISON:? CT, CT ABDOMEN PELVIS WO CON, 07/11/2021, 11:15.? [facility], , CHEST 1 VIEW, 01/16/2014, 16:46.? [facility], , CHEST 1 VIEW, 02/09/2008, 13:54. ? FINDINGS:? ? Surgical changes and devices:? Clips in the left abdomen. ? Lungs and pleura:? Lungs are clear.? No pleural effusions or pneumothorax.? ? Mediastinum:? Mediastinal contours appear normal.? Heart size is normal.? ? Bones and chest wall:? No suspicious bony lesions.? Overlying soft tissues appear unremarkable.? ? IMPRESSION:? No acute cardiopulmonary abnormality identified. ? ? ? Dictated by: Barak Orozco M.D. on 05/19/2022 at 12:19 ? ? Approved by: Barak Orozco M.D. on 05/19/2022 at 12:21 ? ECG Data Interpretation: EKG independently reviewed by Dr. Vasquez at 1151 reveals normal sinus rhythm at 73 bpm with regular axis, normal ME and QRS interval, with prolonged QT at 440 and QTC-baz 484ms. LVH by Lemus criteria. No STEMI, ST segment changes, arrhythmia, or acute ischemic changes. MDM Narrative Medical decision making narrative: This is a 51-year-old male with history obesity, status post gastric bypass, bipolar disorder on lithium lamotrigine, who presents to the the emergency department complaining of bilateral edema in his lower extremities, he went to the walk-in clinic was question about any heart symptoms and he became worried and anxious and states that he had a short period of chest pain associated with that anxiety. This went away and he did not have any other symptoms. In the emergency department today his EKG does not show any acute ST changes, LVH by Lemus criteria, QT interval is 440, without arrhythmia. Patient's heart score is 1. Patient does not have any leukocytosis or anemia, no electrolyte abnormalities or elevation in his liver enzymes, troponin is 0.029, total CK is mildly elevated at 265. Patient states that he went hiking yesterday for 2 miles and this is likely where this came from. Also why he has increased swelling in his lower extremities since yesterday. Patient's lipase was 88, his lithium level was 1.2 which is stable with his baseline. His COVID PCR is negative. Chest x-ray does not show any acute cardiopulmonary abnormality. Patient's breath sounds are clear, he does not have any abnormal breath sounds on exam, tachypnea, hypoxia or other. This is most likely lymphedema of his lower extremities due to his obesity and untreated primary hypertension. Patient had multiple blood pressures over 150 systolic with diastolic less than 90 in the emergency department today. Patient has scheduled follow-up with his PCP on May 26, opted to start patient on 25 mg of hydrochlorothiazide since he has taken this in the past and he will follow up with his primary doctor for a ongoing prescription. Discharged home with strict return precautions for Please follow up with PCP as directed. Return to clinic/ER precautions discussed with patient for new, not-improving, or worsening symptoms.. <Jose Vasquez MD - Last Filed: 05/26/22 07:35> Lab Data Labs: Lab Results 05/19/22 05/19/22 05/19/22 Range/Units 11:51 11:51 12:00 WBC 8.3 (4.5-11.0) X10^3/uL RBC 4.29 L (4.5-5.9) X10^6/uL Hgb 13.7 (13.5-17.5) g/dL Hct 38.4 L (41-53) % MCV 89.6 (80-100) fL MCH 32.0 (26-34) PG MCHC 35.8 (30-36) % RDW 13.0 (11.6-14.8) % Plt Count 204 (150-400) X10^3/uL Neut % (Auto) 63.8 (50-75) % Lymph % (Auto) 21.7 L (25-40) % [place] % (Auto) 10.9 (3-14) % Eos % (Auto) 3.2 (2-4) % Baso % (Auto) 0.4 (0-2) % Neut # (Auto) 5300 (8360-4775) /uL Lymph # (Auto) 1800 (5941-0826) /uL [place] # (Auto) 900 (0-900) /uL Eos # (Auto) 300 (0-450) /uL Baso # (Auto) 0 (0-100) /uL D-Dimer (<500) ng/ml Sodium 136 L (137-145) mmol/L Potassium 3.8 (3.4-5.1) mmol/L Chloride 105 (98-107) mmol/L Carbon Dioxide 26 (22-32) mmol/L BUN 18 (9-20) mg/dL Creatinine 0.78 (0.66-1.25) mg/dL Estimated GFR > 60 (>60) mL/min BUN/Creatinine Ratio 23.1 H (6-22) Glucose 96 (70-100) mg/dL Calcium 9.1 (8.4-10.2) mg/dL Magnesium 1.9 (1.6-2.3) mg/dL Total Bilirubin 1.3 (0.2-1.3) mg/dL AST 36 (17-59) IU/L ALT 31 (<50) IU/L Alkaline Phosphatase 65 (38-126) U/L Total Creatine Kinase 265 H (55-170) U/L CK-MB (CK-2) 2.83 H (<2.37) ng/mL CK-MB (CK-2) Rel Index 1.1 L (1.5-5.0) % Troponin I 0.029 (0.01-0.034) ng/mL Total Protein 7.0 (6.3-8.2) g/dL Albumin 4.2 (3.5-5.0) g/dL Globulin 2.8 (1.7-4.1) g/dL Albumin/Globulin Ratio 1.5 (1.0-2.8) Lipase 88 (23-300) U/L Accord 1.2 (0.6-1.2) mmol/L SARS-CoV-2 (PCR) (Negative) 05/19/22 05/19/22 Range/Units 12:00 12:31 WBC (4.5-11.0) X10^3/uL RBC (4.5-5.9) X10^6/uL Hgb (13.5-17.5) g/dL Hct (41-53) % MCV (80-100) fL MCH (26-34) PG MCHC (30-36) % RDW (11.6-14.8) % Plt Count (150-400) X10^3/uL Neut % (Auto) (50-75) % Lymph % (Auto) (25-40) % [place] % (Auto) (3-14) % Eos % (Auto) (2-4) % Baso % (Auto) (0-2) % Neut # (Auto) (1028-3870) /uL Lymph # (Auto) (6163-0373) /uL [place] # (Auto) (0-900) /uL Eos # (Auto) (0-450) /uL Baso # (Auto) (0-100) /uL D-Dimer 223 (<500) ng/ml Sodium (137-145) mmol/L Potassium (3.4-5.1) mmol/L Chloride (98-107) mmol/L Carbon Dioxide (22-32) mmol/L BUN (9-20) mg/dL Creatinine (0.66-1.25) mg/dL Estimated GFR (>60) mL/min BUN/Creatinine Ratio (6-22) Glucose (70-100) mg/dL Calcium (8.4-10.2) mg/dL Magnesium (1.6-2.3) mg/dL Total Bilirubin (0.2-1.3) mg/dL AST (17-59) IU/L ALT (<50) IU/L Alkaline Phosphatase (38-126) U/L Total Creatine Kinase (55-170) U/L CK-MB (CK-2) (<2.37) ng/mL CK-MB (CK-2) Rel Index (1.5-5.0) % Troponin I (0.01-0.034) ng/mL Total Protein (6.3-8.2) g/dL Albumin (3.5-5.0) g/dL Globulin (1.7-4.1) g/dL Albumin/Globulin Ratio (1.0-2.8) Lipase (23-300) U/L Accord (0.6-1.2) mmol/L SARS-CoV-2 (PCR) Negative (Negative) Discharge Plan Departure Patient Disposition: Home Clinical Impression: Bilateral edema of lower extremity Hypertension Qualifiers: Hypertension type: unspecified Qualified Code(s): I10 - Essential (primary) hypertension Instructions: High Blood Pressure, DI for Dependent Edema Activity Restrictions/Additional Instructions: Your blood pressure was elevated today with systolics between 152 and 187. Your EKG does not show any acute changes, your lab work overall is reassuring, your D-dimer is normal which would indicate a blood clot, your electrolytes are normal, your liver, kidneys, and other enzymes are all normal, your lithium level is 1.2 which is stable since March, your COVID PCR is negative. Your troponin is normal which may indicate a heart attack. Chest x-ray was also normal. The edema in your lower extremities will be worse with dependent activities. Please elevate them frequently, consider compression stockings, start taking your hydrochlorothiazide 25 mg daily and follow-up with Dr. Coulter on May 26. I hope you feel better soon and thank you for trusting us with your care. *What to do: *Please continue to take your regular medications as directed. [ x] New medication prescriptions sent to your pharmacy: [ [facility] [ ] New medication written as a paper prescription [ ] No new medications given *Please follow up with your primary care provider in 2-3 days, call for an appointment. Let them know you were seen in the Emergency Department and that we asked that you be seen for follow-up. We will electronically transmit a record of today's note if your PCP is in our system *If you do not have a primary care provider please contact [phone] to establish care with one of [facility] primary care providers. *Return to Emergency Department if you should have any new, worsening, or concerning symptoms, such as [fever greater than 101F, chills, worsening pain, persistent vomiting or other bothersome symptoms]. Prescriptions: New hydrochlorothiazide 25 mg tablet 25 mg PO DAILY Qty: 30 0RF No Action lorazepam 2 mg/mL concentrate 2 mg PO BEDTIME PRN lithium carbonate 600 mg capsule 600 mg PO BID lamotrigine 250 mg tablet extended release 24 hr 300 mg PO BID Qty: 0 Referrals: Raphael Edwards MD [Primary Care Provider] - Visit Report Forms: Patient Portal/API <Jose Vasquez MD - Last Filed: 05/26/22 07:35> Cosign ED Attending Cosrafaelature Attestation: I was immediately available for consultation of this patient was seen and evaluated by the APC in the department.
[2022-05-19 12:24] LABS: Lithium 1.2 mmol/L (0.6-1.2)
[2022-05-19 12:26] LABS: Alanine Aminotransferase 31 IU/L (<50); Albumin 4.2 g/dL (3.5-5.0); Albumin Globulin Ratio 1.5 (1.0-2.8); Alkaline Phosphatase 65 U/L (38-126); Aspartate Aminotransferase 36 IU/L (17-59); BUN Creatinine Ratio 23.1 (6-22); Bilirubin Total 1.3 mg/dL (0.2-1.3); Blood Urea Nitrogen 18 mg/dL (9-20); Calcium 9.1 mg/dL (8.4-10.2); Carbon Dioxide 26 mmol/L (22-32); Chloride 105 mmol/L (98-107); Creatine Kinase 265 U/L (55-170); Estimated Glomerular Filt Rate > 60 mL/min (>60); Globulin 2.8 g/dL (1.7-4.1); Glucose 96 mg/dL (70-100); HEMOLYSIS < 15 (0-50); Lipase 88 U/L (23-300); Magnesium 1.9 mg/dL (1.6-2.3); Potassium 3.8 mmol/L (3.4-5.1); Sodium 136 mmol/L (137-145)
[2022-05-19 12:30] VITALS: PULSE 69; O2SAT 97
[2022-05-19 12:31] VITALS: BP 152/94; PULSE 68; RESP 26; O2SAT 98
[2022-05-19 12:38] LABS: Troponin I 0.029 ng/mL (0.01-0.034)
[2022-05-19 12:42] LABS: CKMB % Relative Index 1.1 % (1.5-5.0); Creatine Kinase MB 2.83 ng/mL (<2.37)
[2022-05-19 12:45] LABS: D Dimer 223 ng/ml (<500)
[2022-05-19 12:59] LABS: COVID19 -Nasal RAPID Negative (Negative)
[2022-05-19 13:00] VITALS: BP 155/89; PULSE 70; RESP 22; O2SAT 98
== END 2022-05-19 13:18 | disposition home or self-care (01) ==
PROVIDERS: Family Medicine Addiction Medicine; Emergency Provider Nurse Practitioner Critical Care Medicine; Family Provider Student in an Organized Health Care Education/Training Program; PCP Family Medicine
DX: R60.0 Localized edema (principal); I10 Essential (primary) hypertension; R07.9 Chest pain, unspecified; R06.02 Shortness of breath; E66.9 Obesity, unspecified; Z68.42 Body mass index [BMI] 45.0-49.9, adult; Z98.84 Bariatric surgery status; Z20.822 Contact with and (suspected) exposure to COVID-19
CPT/HCPCS: 36415; 71045; 80053; 80178; 82550; 82553; 83690; 83735; 84484; 85025; 85379; 87635; 93005; 99284; C9803

== ENCOUNTER → 2022-06-24 14:13 | Outpatient (CLI) | payer OTHER, SELFPAY ==
[2022-06-24 14:50] LABS: Lithium 0.8 mmol/L (0.6-1.2)
[2022-06-24 14:59] LABS: BUN Creatinine Ratio 25.4 (6-22); Blood Urea Nitrogen 18 mg/dL (9-20); Calcium 9.1 mg/dL (8.4-10.2); Carbon Dioxide 24 mmol/L (22-32); Chloride 104 mmol/L (98-107); Estimated Glomerular Filt Rate > 60 mL/min (>60); Glucose 97 mg/dL (70-100); HEMOLYSIS < 15 (0-50); Potassium 3.9 mmol/L (3.4-5.1); Sodium 137 mmol/L (137-145)
== END ==
PROVIDERS: PCP Family Medicine; Referring Provider Psychiatry & Neurology Psychiatry; Visit Provider Psychiatry & Neurology Psychiatry
DX: F31.9 Bipolar disorder, unspecified (principal)
CPT/HCPCS: 36415; 80048; 80178

== ENCOUNTER → 2023-03-11 09:58 | Outpatient (CLI) | payer OTHER, SELFPAY ==
[2023-03-11 10:55] LABS: Lithium 0.5 mmol/L (0.6-1.2)
[2023-03-11 10:59] LABS: Blood Urea Nitrogen 17 mg/dL (9-20); Carbon Dioxide 29 mmol/L (22-32); Chloride 105 mmol/L (98-107); Estimated Glomerular Filt Rate > 60 mL/min (>60); Glucose 106 mg/dL (70-100); HEMOLYSIS < 15 (0-50); Potassium 3.8 mmol/L (3.4-5.1); Sodium 139 mmol/L (137-145)
== END ==
PROVIDERS: PCP Family Medicine; Referring Provider Psychiatry & Neurology Psychiatry; Visit Provider Psychiatry & Neurology Psychiatry
DX: F31.9 Bipolar disorder, unspecified (principal)
CPT/HCPCS: 36415; 80048; 80178

== ENCOUNTER → 2023-11-13 08:27 | Outpatient (CLI) | payer OTHER, SELFPAY ==
[2023-11-13 09:39] LABS: Lithium 1.2 mmol/L (0.6-1.2)
[2023-11-13 09:42] LABS: BUN Creatinine Ratio 22.4 (6-22); Blood Urea Nitrogen 17 mg/dL (9-20); Calcium 9.4 mg/dL (8.4-10.2); Carbon Dioxide 26 mmol/L (22-32); Chloride 102 mmol/L (98-107); Estimated Glomerular Filt Rate > 60 mL/min (>60); Glucose 99 mg/dL (70-100); HEMOLYSIS 15 (0-50); Potassium 4.2 mmol/L (3.4-5.1); Sodium 137 mmol/L (137-145)
[2023-11-13 10:09] LABS: Testosterone 187 ng/dL (71.8-623)
[2023-11-13 10:11] LABS: Thyroid Stimulating Hormone 2.08 uIU/mL (0.47-4.68)
== END ==
PROVIDERS: PCP Family Medicine; Referring Provider Psychiatry & Neurology Psychiatry; Visit Provider Psychiatry & Neurology Psychiatry
DX: F31.9 Bipolar disorder, unspecified (principal); E29.1 Testicular hypofunction
CPT/HCPCS: 36415; 80048; 80178; 84403; 84443

== ENCOUNTER 2023-12-01 15:45 | Emergency (ER) | payer OTHER, SELFPAY ==
[2023-12-01 15:48] VITALS: BP 160/96; PULSE 84; RESP 18; TEMP 36.2; O2SAT 98; BMI 47.2
--- NOTE | 2023-12-01 16:16 | ED.BACK ---
HPI - Back Pain/Injury <Gerardo Romeo PA-C - Last Filed: 12/01/23 16:38> General Chief Complaint: Back Pain/Injury Stated Complaint: pain on rt side Time Seen by Provider: 12/01/23 15:57 Source: patient and family History of Present Illness HPI Narrative: 53-year-old male with past medical history bipolar disorder presents to the ED with 1 day of right-sided lower back pain that wraps around to the front. 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 Patient states that since that incident, pain in that area has been aggravated by movements. Patient denies chest pain, shortness of breath, fever, chills, nausea, vomiting, dysuria. Patient does have a history of nephrolithiasis, however says that this pain is very different from the kidney stone pain. Related Data Home Medications Medication Instructions Recorded Confirmed lamotrigine 250 mg tablet,extended 300 mg PO BID #0 tabs 02/04/19 05/19/22 release 24 hr lorazepam 2 mg/mL oral concentrate 2 mg PO BEDTIME PRN 02/04/19 05/19/22 lithium carbonate 600 mg capsule 600 mg PO BID 07/11/21 05/19/22 Previous Rx's Medication Instructions Recorded hydrochlorothiazide 25 mg tablet 25 mg PO DAILY 05/19/22 hypertension/swelling #30 tabs cyclobenzaprine 10 mg tablet 10 mg PO TID PRN muscle spasm #20 12/01/23 tabs Allergies Allergy/AdvReac Type Severity Reaction Status Date / Time amoxicillin [AMOXICILLIN] AdvReac Mild STOMACH Verified 12/01/23 15:48 PAIN, DIARRHEA Review of Systems <Gerardo Romeo PA-C - Last Filed: 12/01/23 16:38> Constitutional Constitutional: Denies chills, Denies fatigue, Denies fever(s), Denies frequent falls, Denies lethargy and Denies weakness Eyes Eyes: Denies change in vision, Denies eye discharge, Denies irritation and Denies loss of vision ENT Ears, Nose, Mouth, and Throat: Denies change in voice, Denies dizziness, Denies neck pain, Denies sore throat and Denies throat swelling Cardiovascular Cardiovascular: Denies chest pain, Denies irregular heart rhythm, Denies lightheadedness, Denies palpitations, Denies dyspnea, Denies dyspnea on exertion and Denies orthopnea Respiratory Respiratory: Denies cough, Denies dyspnea, Denies dyspnea on exertion and Denies wheezing Gastrointestinal Gastrointestinal: Denies abdominal pain, Denies change in bowel habits, Denies diarrhea, Denies nausea and Denies vomiting Musculoskeletal Musculoskeletal: Reports back pain, Denies neck pain and Denies numbness Integumentary/Breasts Skin/Breast: Denies pruritus, Denies erythema, Denies rash and Denies wounds Neurologic Neurologic: Denies behavioral changes, Denies confusion, Denies dizziness, Denies frequent falls, Denies loss of vision, Denies numbness and Denies weakness Psychiatric Psychiatric: Denies anxiety, Denies behavioral changes, Denies confusion, Denies depression, Denies homicidal ideation and Denies suicidal ideation Endocrine Endocrine: Denies fatigue, Denies flushing and Denies palpitations Hematologic/Lymphatic Hematologic/Lymphatic: Denies easy bruising Allergic/Immunologic Allergic/Immunologic: Denies urticaria, Denies throat swelling and Denies wheezing Patient History <Gerardo Romeo PA-C - Last Filed: 12/01/23 16:38> Medical History Pain of right heel Sleep apnea (Unknown) Chronic pain syndrome (Unknown) Low testosterone (Unknown) Depression (Unknown) Bipolar disorder (Unknown) Kidney stones (Unknown) Hypertension (Unknown) Morbid obesity (10/16/15) Testosterone deficiency (05/04/15) Essential hypertension (10/16/15) Bipolar affective disorder (10/16/15) Surgical History S/P bariatric surgery History of lithotripsy Family History Father Age: 63 Cancer Mother Age: 58 Mental health disorder Social History Smoking Status: Current some day smoker Smoking Status: Current some day smoker tobacco type: cigars alcohol intake frequency: a few times a week Substance Use Type: marijuana Exam <Gerardo Romeo PA-C - Last Filed: 12/01/23 16:38> Narrative Exam Narrative: Const General:?cooperative, healthy appearing and comfortable [facility] Head:?normal to inspection Ears:?hearing grossly normal bilaterally Nose:?external nose normal Face and sinus:?normal facial exam and sinuses nontender Mouth:?oral mucosae normal Throat:?posterior oropharynx normal Eyes General:?appearance normal, both eyes and all related structures Neck Neck:?normal visual inspection and no lymphadenopathy noted Resp Effort & Inspection:?normal respiratory effort Auscultation:?clear to auscultation bilaterally Cardio Rate:?regular rate Rhythm:?regular rhythm Musculoskeletal No midline tenderness to palpation. No paraspinal tenderness to palpation. There is some all over erythema and dry, pinpoint rash on the back, however not localized to the region of pain. No deformities. Gait is normal. Neurovascularly intact. Neuro General:?patient alert, patient awake and patient oriented x3 Initial Vital Signs Initial Vital Signs: Vital Signs Temperature 97.1 F L 12/01/23 15:48 Pulse Rate 84 12/01/23 15:48 Respiratory Rate 18 12/01/23 15:48 Blood Pressure 160/96 H 12/01/23 15:48 Pulse Oximetry 98 12/01/23 15:48 Oxygen Delivery Method Room Air 12/01/23 15:48 <Maryana Macias DO - Last Filed: 12/02/23 11:49> Initial Vital Signs Initial Vital Signs: Vital Signs Temperature 97.1 F L 12/01/23 15:48 Pulse Rate 84 12/01/23 15:48 Respiratory Rate 18 12/01/23 15:48 Blood Pressure 160/96 H 12/01/23 15:48 Pulse Oximetry 98 12/01/23 15:48 Oxygen Delivery Method Room Air 12/01/23 15:48 Course <Gerardo Romeo PA-C - Last Filed: 12/01/23 16:38> Orders Ordered: Discontinued Medications Acetaminophen (Acetaminophen 325 Mg Tablet) 975 mg PO NOW ONE Stop: 12/01/23 16:12 Last Admin: 12/01/23 16:25 Dose: 975 mg Documented By: HILL Cyclobenzaprine HCl (Cyclobenzaprine 10 Mg Tablet) 10 mg PO NOW ONE Stop: 12/01/23 16:12 Last Admin: 12/01/23 16:25 Dose: 10 mg Documented By: SPF Vital Signs Vital signs: Vital Signs - 8 hr 12/01/23 15:48 Temperature 97.1 F L Pulse Rate 84 Respiratory Rate 18 Blood Pressure 160/96 H Pulse Oximetry 98 Oxygen Delivery Method Room Air <Maryana Macias DO - Last Filed: 12/02/23 11:49> Orders Ordered: Discontinued Medications Acetaminophen (Acetaminophen 325 Mg Tablet) 975 mg PO NOW ONE Stop: 12/01/23 16:12 Last Admin: 12/01/23 16:25 Dose: 975 mg Documented By: HILL Cyclobenzaprine HCl (Cyclobenzaprine 10 Mg Tablet) 10 mg PO NOW ONE Stop: 12/01/23 16:12 Last Admin: 12/01/23 16:25 Dose: 10 mg Documented By: HILL Vital Signs Vital signs: Vital Signs - 8 hr 12/01/23 15:48 Temperature 97.1 F L Pulse Rate 84 Respiratory Rate 18 Blood Pressure 160/96 H Pulse Oximetry 98 Oxygen Delivery Method Room Air MDM - Back Pain/Injury <Gerardo Romeo PA-C - Last Filed: 12/01/23 16:38> Lab Data Labs: Urine Dip Bedside Urine Glucose Negative Bedside Urine Bilirubin - Negative Bedside Urine Ketone - Negative Urine Specific Ant[place] 1.025 Bedside Urine Occult Blood - Negative Bedside Urine pH 6.0 Bedside Urine Protein - Negative Bedside Urine Urobilinogen - Negative Bedside Urine Nitrite - Negative Bedside Urine Leukocytes - Negative Esterase MDM Narrative Medical decision making narrative: 53-year-old male with past medical history bipolar disorder presents to the ED with 1 day of right-sided lower back pain that wraps around to the front. History and physical exam is most consistent with a musculoskeletal sprain/strain of the lower/mid back. No red flag symptoms. Prescribed Flexeril. Recommend ibuprofen and Tylenol as well. Recommend follow-up with PCP as soon as possible. ED return precautions discussed with patient. Patient verbalized understanding. Medical records reviewed: Yes <Maryana Macias DO - Last Filed: 12/02/23 11:49> Lab Data Labs: Urine Dip Bedside Urine Glucose Negative Bedside Urine Bilirubin - Negative Bedside Urine Ketone - Negative Urine Specific [place] 1.025 Bedside Urine Occult Blood - Negative Bedside Urine pH 6.0 Bedside Urine Protein - Negative Bedside Urine Urobilinogen - Negative Bedside Urine Nitrite - Negative Bedside Urine Leukocytes - Negative Esterase Discharge Plan Departure Patient Disposition: Home Clinical Impression: Back pain Qualifiers: Back pain location: low back pain Chronicity: acute Back pain laterality: right Sciatica presence: without sciatica Qualified Code(s): M54.50 - Low back pain, unspecified Instructions: DI for Back Strain or Sprain Activity Restrictions/Additional Instructions: You were evaluated in the ED today for right-sided back pain. It appears that your symptoms are most consistent with a musculoskeletal sprain/strain that occurred when you twisted. You are being prescribed a muscle relaxant to help with the pain as needed. You may also take 800 mg of ibuprofen with food every 8 hours and 1000 mg of Tylenol every 8 hours. You may apply lidocaine patches for relief. Please follow-up with your PCP as soon as possible. Return to the ED if you have worsening symptoms, urinary difficulties, persistent vomiting. Prescriptions: New cyclobenzaprine 10 mg tablet 10 mg PO TID PRN (Reason: muscle spasm) Qty: 20 0RF No Action lorazepam 2 mg/mL concentrate 2 mg PO BEDTIME PRN lithium carbonate 600 mg capsule 600 mg PO BID lamotrigine 250 mg tablet extended release 24 hr 300 mg PO BID Qty: 0 hydrochlorothiazide 25 mg tablet 25 mg PO DAILY Qty: 30 0RF Referrals: Raphael Edwards MD [Primary Care Provider] - Stand Alone Forms: Patient Portal/API, Work Release Note ED Sign-out <Maryana Macias DO - Last Filed: 12/02/23 11:49> Cosign ED Attending Leonardo Attestation: I was immediately available in the department for consultation.
--- NOTE | 2023-12-01 16:20 | PC.NURSE ---
Pt was seen at the walk in clinic and was told to go to the ER for evaluation. Pt filed for L&I.
[2023-12-01] MEDS: CYCLOBENZAPRINE 10 MG TABLET PO (16:25)
[2023-12-01] MEDS: ACETAMINOPHEN 325 MG TABLET 975 MG PO (16:25)
--- NOTE | 2023-12-01 16:27 | PC.NURSE ---
Pt was sent home with PO medication (SEE NOV) due to needing to pickup his 's vehicle before going home. Pt aware of not being allowed to drive while taking prescribed medications. Provider Ousmane cheung'ed sending patient home with medication (SEE NOV).
[2023-12-01 16:33] VITALS: BP 138/89; PULSE 72; RESP 18; O2SAT 97
== END 2023-12-01 17:21 | disposition home or self-care (01) ==
PROVIDERS: Emergency Provider Student in an Organized Health Care Education/Training Program; PCP Family Medicine
DX: M54.50 Low back pain, unspecified (principal)
CPT/HCPCS: 81003; 99283

== ENCOUNTER → 2023-12-21 17:37 | Outpatient (CLI) | payer OTHER, SELFPAY ==
[2023-12-21 18:21] LABS: Lithium 0.7 mmol/L (0.6-1.2)
== END ==
PROVIDERS: PCP Family Medicine; Referring Provider Psychiatry & Neurology Psychiatry; Visit Provider Psychiatry & Neurology Psychiatry
DX: F31.9 Bipolar disorder, unspecified (principal)
CPT/HCPCS: 36415; 80178